=== PATIENT | female | born 1955 | race Caucasian/White ===

== ENCOUNTER 2016-10-30 02:08 | Emergency (ER) | payer OTHER ==
--- NOTE | 2016-10-30 02:40 | PDOC ---
History of Present Illness - General Stated Complaint: TOOTHPASTE IN RIGHT EYE Time Seen by Provider: 10/30/16 02:10 History Source: Patient Exam Limitations: No Limitations - History of Present Illness Initial Comments: 10/30/16 02:33 This is a 60-year-old female who comes in complaining that she got a little bit of toothpaste in her eye. Patient took a picture of her INR text added to her ink grinder who told her she should come in for evaluation of the eye. Patient did irrigate the eye for about 10 minutes prior to coming in. Patient said at this point there is some very mild irritation of the lower portion of her eye. Otherwise she denies any pain or complaints. Patient denies any change in her vision. Patient does not want anybody to touch her eye and refused to let me examine it with magnification magnification. Patient also refused to let us use a Ra lens. Patient refused to let me check the pH of her eye. Patient does not want anybody touching her eye or putting anything in her eye. Patient did agree to let the nurse washed her eye out with some saline from a saline bag through tubing that is held above her eye. PAST MEDICAL HISTORY: no significant history PAST SURGICAL HISTORY: no significant history FAMILY HISTORY: no pertinant history SOCIAL HISTORY: Pt lives with family and is employed. MEDICATIONS: reviewed ALLERGIES: As per nursing notes Review of Systems General: No fevers or chills, no weakness, no weight loss HEENT: No change in vision. No sore throat,. No ear pain CardioVascular: No chest pain or shortness of breath Respiratory:No cough, or wheezing. Gastrointestinal: no nausea, vomitting, diarrhea or constipation, No rectal bleeding Genitourinary: No dysuria, hematuria, or frequency Musculoskeletal: No joint or muscle pain or swelling Neurologic: No headache, vertigo, dizziness or loss of consciousness Psychiatric: nor depression Skin: No rashes or easy bruising Endocrine: no increased thirst or abnormal weight change Allergic: no skin or latex allergy All other systems reviewed and normal GENERAL: The patient is awake, alert, and fully oriented, in no acute distress. HEAD: Normal with no signs of trauma. EYES: Pupils equal, round and reactive to light, extraocular movements intact, sclera anicteric, there is some very mild injection of the conjunctiva of the left eye. I'm unable to do fluorscene staining as patient refused fluorscene and pH testing of the eye. EXTREMITIES: Normal range of motion, no edema. NEUROLOGICAL: Normal speech, normal gait. PSYCH: Normal mood, normal affect. SKIN: Warm, Dry, normal turgor, no rashes or lesions noted. Assessment and plan: This is a 60-year-old female who was sent in by her ink grinder to have her eye irrigated. We were unable to do anything other than irrigate the patient's eye and she refused to let me measure the pH or to stay and it in order to visualize any storey or abrasions. In addition to that she would not let me examine it under the slit lamp. Past History - Past Medical History Allergies/Adverse Reactions: Allergies Allergy/AdvReac Type Severity Reaction Status Date / Time cephalexin monohydrate Allergy Verified 10/30/16 03:46 [From Keflex] Home Medications: Ambulatory Orders Moxifloxacin HCl [Vigamox 0.5% Eye Drops -] 1 drop NR TID 10/30/16 *DC/Admit/Observation/Transfer Diagnosis at time of Disposition: Irritation of left eye - Discharge Dispostion Disposition: HOME Condition at time of disposition: Stable Admit: No - Patient Instructions Additional Instructions: Follow-up with your ink grinder in the morning, Return to the emergency department immediately with ANY new, persistent or worsening symptoms. Continue any medications as previously prescribed by your physician. Thank you for coming to the Emergency Department today for your care. It was a pleasure to see you today. Please note that your evaluation is INCOMPLETE until you follow-up with your doctor.
[2016-10-30 03:52] VITALS: BP 163/100; PULSE 73; TEMP 97.8; BMI 23.1
== END 2016-10-30 03:52 | disposition home or self-care (01) ==
LOC: FER 02:08
DX: H57.8 Other specified disorders of eye and adnexa (principal)
CPT/HCPCS: 99281-25